=== PATIENT | female | born 1955 | race Caucasian/White ===

== ENCOUNTER → 2017-07-28 | Outpatient (CLI) | payer BC ==
[~2017-07-28] MED LIST: DICL-201 PO; OMEP20TA14 PO; VENL75CA PO
--- NOTE | 2017-07-28 18:48 | DIAGNOSTIC IMAGING REPORT ---
CHEST 2 VIEWS ROUTINE CLINICAL HISTORY: R05 Productive [id number] Rhonchi cough COMPARISON STUDY: No previous studies for comparison. FINDINGS: The bones soft tissues and hemidiaphragms are normal. The cardiomediastinal silhouette is normal. The lungs are clear. The pulmonary vasculature is normal. IMPRESSION: Negative chest. The above report was generated using voice recognition software. It may contain grammatical, syntax or spelling errors. Electronically signed by: Zen Diego M.D. 07/28/2017 6:47 PM Dictated Date/Time: 07/28/2017 6:46 PM
== END | disposition home or self-care (01) ==
LOC: C.RAD 18:23
PROVIDERS: ATTEND Internal Medicine
DX: R05 Cough (principal); R09.89 Other specified symptoms and signs involving the circulatory and respiratory systems

== ENCOUNTER 2017-12-21 10:39 | Inpatient (IN) | payer BC ==
[2017-11-10 08:44] VITALS: Ht 162.6 cm; Wt 83.5 kg
--- NOTE | 2017-11-10 09:14 | PAT Medication Instructions ---
Service Date Nov 10, 2017. Current Home Medication List Acetaminophen (Tylenol), 500 MG PO PRN Diclofenac (Voltaren), 75 MG PO BID Lisinopril (Zestril), 5 MG PO QAM Omeprazole (Prilosec), 20 MG PO QAM Venlafaxine Hcl (Effexor Xr), 1 CAP PO QAM Medication Instructions For Your Scheduled Surgery - Hold the following medications 10 days prior to surgery per your surgeon's instructions: Diclofenac (Voltaren), 75 MG PO BID - Hold the following medications the morning of surgery: Lisinopril (Zestril), 5 MG PO QAM - Take the following medications the morning of surgery with a sip of water: Acetaminophen (Tylenol), 500 MG PO PRN (if needed, can be taken up to four hours before surgery) Omeprazole (Prilosec), 20 MG PO QAM Venlafaxine Hcl (Effexor Xr), 1 CAP PO QAM - Take the following medications as scheduled the night before surgery: Acetaminophen (Tylenol), 500 MG PO PRN (if needed) If you have any questions please call us at [phone] or [phone] or [phone]
[2017-11-10 10:05] LABS: BASO % 0.5 %; BASO ABS # 0.04 K/uL (0-0.2); EOS % 2.4 %; EOS ABS # 0.18 K/uL (0-0.5); HEMATOCRIT 41.1 % (37-47); HEMOGLOBIN 13.5 g/dL (12.0-16.0); IG# 0.02 K/uL (0.00-0.02); LYMPH % 26.9 %; LYMPH ABS # 2.04 K/uL (1.2-3.4); MEAN CELL VOLUME 92.2 fL (80-100); MEAN CORPUSCULAR HEMOGLOBIN 30.3 pg (25-34); MEAN CORPUSCULAR HGB CONC 32.8 g/dl (32-36); MEAN PLATELET VOLUME 9.6 fL (7.4-10.4); MONO % 7.8 %; MONO ABS # 0.59 K/uL (0.11-0.59); NEUT % 62.1 %; NEUT ABS # 4.71 K/uL (1.4-6.5); PLATELET COUNT 307 K/uL (130-400); RED CELL DISTRIBUTION WIDTH CV 13.6 % (11.5-14.5); RED CELL DISTRIBUTION WIDTH SD 45.5 fL (36.4-46.3); WHITE BLOOD COUNT 7.58 K/uL (4.8-10.8)
[2017-11-10 10:12] LABS: PTT PATIENT 26.2 SECONDS (21.0-31.0)
[2017-11-10 10:39] LABS: CALCIUM 9.1 mg/dl (8.5-10.1); CREATININE 0.71 mg/dl (0.60-1.20); POTASSIUM 3.8 mmol/L (3.5-5.1)
--- NOTE | 2017-12-18 18:39 | HISTORY & PHYSICAL EXAMINATION ---
DATE OF ADMISSION: 12/21/2017 CHIEF COMPLAINT: Bilateral knee pain and discomfort, right side greater than left. 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 She has a long history of bilateral knee pain and discomfort, which has gradually gotten worse over the past 3-4 years[address] had seen Dr. Busby at [facility] and has been treated with injections. Shots helped initially but became less successful over time. She tried various other studies but did not qualify for any. She has tried anti-inflammatories without much relief. She has a limited walking tolerance. The right knee bothers her more than left. She would like to have her right knee fixed. PAST MEDICAL HISTORY: 1. Hypertension. 2. Mild anxiety. 3. Osteoarthritis. 4. Gastroesophageal reflux disease. PAST SURGICAL HISTORY: Includes 1. Facial reconstruction for dog bite injury. 2. Breast reduction. ALLERGIES: 1. SULFA. 2. NICKEL ALLERGY. MEDICATIONS: Current medications include: 1. Lisinopril 5 mg a day. 2. Effexor 10 mg a day. 3. Diclofenac twice a day. 4. Omeprazole for heartburn. SOCIAL HISTORY: A 62-year-old female. She is . She is a retired teacher. From the [facility]. FAMILY HISTORY: Significant for diabetes and heart disease. REVIEW OF SYSTEMS: Negative for diabetes, neurologic problem, vascular problem or resource. She does report a possible nickel allergy. No history of DVT or PE. PHYSICAL EXAMINATION: GENERAL: Examination reveals a healthy and pleasant 62-year-old female. HEENT: Benign. NECK: Supple. No lymphadenopathy. LUNGS: Clear to auscultation. CARDIOVASCULAR: Heart has regular rate and rhythm. GASTROINTESTINAL: Abdomen is soft, nontender, nondistended. EXTREMITIES: Grossly neurovascularly intact except as follows: Examination of the right knee reveals the patient walks with a varus alignment to her knee with a slight varus thrust. She has bony hypertrophy medially. Small knee effusion. Range of motion is 5 to 10 degrees. She will have full extension to 115 degrees of flexion. No instability. No pain with motion. IMAGING: X-rays of both knees were reviewed, show advanced bilateral knee DJD. She has a complete loss of her joint space and little bit tibial femoral subluxation. The right side is probably just a little bit worse than the left. She has osteophytes off the medial femoral condyle and the medial tibial plateau. ASSESSMENT: A 62-year-old female with advanced bilateral knee degenerative joint disease unresponsive to conservative treatment. The right knee is more symptomatic than the left, and she would like to have her right knee replaced. She does have an apparent nickel allergy, so will use a Rodney and Nephew total knee system with a zirconium femur and a titanium tibia. PLAN: The risks and benefits of right total knee replacement were explained to the patient which include but not limited to DVT, PE, , infection, neurological injury, vascular injury, bleeding problem, pain, limited range of motion, stiffness, failure to relieve her symptoms, etc. The patient understands and desires to proceed. Informed consent was obtained.
[~2017-12-21] VITALS: Ht 162.6 cm; Wt 83.5 kg
[2017-12-21] VITALS (7 sets, daily range): BP systolic 97–146; BP diastolic 61–98; PULSE 71–83; TEMP 36.6–37.2; O2SAT 92–99
[~2017-12-21 10:39] MED LIST changes: +ACET-1256 PO; +ACETAMINOPHEN 500 MG TAB PO SCH; +BUPIVACAINE 0.5 % 5 MG/1 ML PF 10ML VIAL ONE; +BUPIVACAINE LIPOSOME 266 MG, BUPIVACAINE/EPINEPHRINE INJ 50 ML, SODIUM CHLORIDE 0.9% PF... INFIL SCH; +CEFAZOLIN 2000MG IV PUSH 15 ML IV SCH; +FAMOTIDINE 20 MG TAB PO SCH; +GABAPENTIN 600 MG PO SCH; +LACTATED RINGER'S 1000ML 1,000 ML IV SCH; +LACTATED RINGER'S 1000ML IV SCH; +LISI-729 PO; +METOCLOPRAMIDE HCL 10 MG TAB PO SCH; -OMEP20TA14 PO; +PRLSR20 PO; +ROPIVACAINE 0.5% 5 MG/ML 30 ML VIAL ONE; +SCOPOLAMINE 1.5 MG TDSY TD SCH; +TRANEXAMIC ACID INJ 1,000 MG x 1 Bag Intra-Op IV SCH; +VENL150C PO; -VENL75CA PO
--- NOTE | 2017-12-21 11:05 | History & Physical Bridge Note ---
H&P Re-Evaluation Bridge Note: I have examined the patient, reviewed the History & Physical and in the interval since the performance of the History & Physical I have noted the following changes of clinical significance: No changes noted
[2017-12-21] MEDS ORDERED: MIDAZOLAM HCL 1 MG/ML 2ML VIAL ONE (12:38)
[2017-12-21] MEDS ORDERED: LIDOCAINE HCL 2% 2 ML VIAL (20MG/ML) ONE (12:38)
[2017-12-21] MEDS ORDERED: EpHEDrine SULFATE 50MG/5ML SYR ONE (12:38)
[2017-12-21] MEDS ORDERED: PHENYLEPHRINE 100MCG/ML 5ML SYR ONE (12:38)
[2017-12-21] MEDS ORDERED: FENTANYL CITRATE INJ 50 MCG/1 ML 2 ML VIAL ONE (12:38)
[2017-12-21] MEDS ORDERED: PROPOFOL IV EMULSION 10 MG/ML 20 ML VIAL IV ONE ×2 (12:38→14:38)
[2017-12-21] MEDS ORDERED: BUPIVACAINE 0.25% 30 ML VIAL ONE (13:02)
[2017-12-21] MEDS ORDERED: BACITRACIN 50000 UNIT VIAL ONE (13:02)
[2017-12-21] MEDS ORDERED: SODIUM CHLORIDE 0.9% PF 50 ML VIAL ONE (13:02)
[2017-12-21] MEDS ORDERED: BUPIVACAINE LIPOSOME 1/3% 266 MG/20 ML VIAL INFIL ONE (13:02)
[2017-12-21] MEDS ORDERED: EpINEphrine INJ 1MG/ML AMP 1 MG/ML AMP ONE (13:02)
[2017-12-21] MEDS ORDERED: EpHEDrine SULFATE INJ 50 MG/ML AMP IV PRN (13:45)
[2017-12-21] MEDS ORDERED: FLUMAZENIL 0.1 MG/1 ML 10 ML VIAL IV PRN (13:45)
[2017-12-21] MEDS ORDERED: FENTANYL CITRATE INJ 50 MCG/1 ML 2 ML VIAL IV PRN (13:45)
[2017-12-21] MEDS ORDERED: ONDANSETRON INJ 2 MG/ML 2 ML VIAL IV PRN ×2 (13:45→15:00)
[2017-12-21] MEDS ORDERED: PHENYLEPHRINE 100MCG/ML 5ML SYR IV PRN (13:45)
[2017-12-21] MEDS ORDERED: MEPERIDINE HCL 25 MG/ML CARP IV PRN (13:45)
[2017-12-21] MEDS ORDERED: LABETALOL HCL IV 5 MG/ML 20ML IV PRN (13:45)
[2017-12-21] MEDS ORDERED: NALOXONE HCL 0.4 MG/1 ML VIAL/CARP IV PRN (13:45)
[2017-12-21] MEDS ORDERED: ATROPINE SULFATE 0.1 MG/ML 5ML SYR IV PRN (13:45)
--- NOTE | 2017-12-21 14:58 | [facility] Post Operative Brief Note ---
Immediate Operative Summary Operative Date Dec 21, 2017. Pre-Operative Diagnosis Right Knee Advanced Degenerative Joint Disease Post-Operative Diagnosis Right Knee Advanced Degenerative Joint Disease Procedure(s) Performed Right Total Knee Arthroplasty Surgeon Dr. Medellin Human Resources Coordinator Surgeon(s) TRISHA Suarez Estimated Blood Loss 50 ml Findings Consistent with Post-Op Diagnosis Fluids (cc crystalloids) 2000 cc Specimens A. Right Knee Bone and Tissue Drains None Anesthesia Type MAC Spinal Regional Complication(s) none Disposition Accompanied Pt To Recover: no Disposition: Recovery Room / PACU
[2017-12-21] MEDS ORDERED: DiphenhydrAMINE HCL 50 MG/ML VIAL IV PRN (15:00)
[2017-12-21] MEDS ORDERED: BISACODYL 10 MG SUPP PR PRN (15:00)
[2017-12-21] MEDS ORDERED: ALUMINUM/MAGNESIUM/SIMETH (MAALOX MAX) 30 ML UDC PO PRN (15:00)
[2017-12-21] MEDS ORDERED: ZOLPIDEM TARTRATE 5 MG TAB PO PRN (15:00)
[2017-12-21] MEDS ORDERED: CEFAZOLIN IV 2,000 MG in DEXTROSE 5% 50ML 50 ML IV SCH (15:00)
[2017-12-21] MEDS ORDERED: MAGNESIUM HYDROXIDE SUSP 30 ML UDC PO PRN (15:00)
[2017-12-21] MEDS ORDERED: METOCLOPRAMIDE HCL INJ 5 MG/ML 2 ML VIAL IV PRN (15:00)
--- NOTE | 2017-12-21 15:35 | DIAGNOSTIC IMAGING REPORT ---
R KNEE 2 VIEWS ROUTINE CLINICAL HISTORY: Degenerative arthritis. Postop study. COMPARISON: Outside radiograph performed in November 2017 DISCUSSION: There are postsurgical changes of a total knee arthroplasty and patellar resurfacing. Overlying skin neo are visualized. There is air within the soft tissues consistent with recent surgery. The femoral and tibial components appear well seated. IMPRESSION: Postsurgical changes of a total right knee arthroplasty Electronically signed by: Robert Benites M.D. 12/21/2017 3:34 PM Dictated Date/Time: 12/21/2017 3:33 PM
--- NOTE | 2017-12-21 15:40 | Anesthesiology Progress Note ---
Anesthesia Post Op Note Date & Time Dec 21, 2017 at 15:40 Vital Signs Pain Intensity: 0 Vital Signs Past 12 Hours Date Time Temp Pulse Resp B/P (MAP) Pulse Ox O2 Delivery O2 Flow Rate FiO2 12/21/17 15:35 74 16 97/63 96 Nasal Cannula 2 Oxymask 12/21/17 15:25 74 16 101/63 96 Oxymask 10 12/21/17 15:15 82 18 100/60 97 Oxymask 10 12/21/17 15:04 36.7 77 18 98/53 96 Oxymask 10 12/21/17 11:24 36.8 80 20 146/98 Notes Mental Status: alert / awake / arousable, participated in evaluation Pt Amnestic to Procedure: Yes Nausea / Vomiting: adequately controlled Pain: adequately controlled Airway Patency, RR, SpO2: stable & adequate BP & HR: stable & adequate Hydration State: stable & adequate Neuraxial Anesthesia: was administered, sensory block is resolving Anesthetic Complications: no major complications apparent
[2017-12-21] MEDS: CHECK SCOPOLAMINE PATCH PLACEMENT SCH ×2 (16:00→23:18)
[2017-12-21] MEDS: TRAMADOL HCL 50 MG TAB PO PRN (17:46)
[2017-12-21] MEDS: FERROUS GLUCONATE 324 MG TAB PO SCH (18:26)
[2017-12-21] MEDS: KETOROLAC TROMETHAMINE 30 MG/ML VIAL IV. SCH ×2 (18:27→23:18)
--- NOTE | 2017-12-21 19:16 | PROGRESS NOTE ---
DATE: 12/21/2017 SUBJECTIVE: 62-year-old female postop from a right knee replacement. She is doing well. Pretty painful earlier but got some pain medicine, doing much better. No chest pain or shortness of breath. Not feeling dizzy or lightheaded. OBJECTIVE: VITAL SIGNS: Temperature 36.6. Vital signs stable. PHYSICAL EXAMINATION: GENERAL: Reveals a healthy, pleasant middle-aged female. She is sitting up in bed, looks pretty comfortable. She is talking to her . LUNGS: Clear to auscultation. HEART: Regular rate and rhythm. ABDOMEN: Soft, nontender, nondistended. EXTREMITIES: Grossly neurovascularly intact except as follows: Examination of the right leg reveals the dressing to be clean, dry and intact. She can dorsiflex and plantarflex her foot appropriately. She is neurologically intact. She has brisk refill. ASSESSMENT: 62-year-old female postop from a right knee replacement, doing well. Pain is controlled. She is neurologically intact. PLAN: 1. DVT prophylaxis including thigh-high TEDs, SCDs, and aspirin twice a day. 2. PT/OT. Weight bear as tolerated. Right total knee protocol. 3. Pain control, doing pretty well with current pain regimen. 4. IV antibiotics x24 hours. 5. Disposition: Plan to discharge to home likely with some home health once adequately recovered.
[2017-12-21] MEDS ORDERED: TRANEXAMIC ACID INJ 1,000 MG in SODIUM CHLORIDE 0.9% 100ML 100 ML IV SCH (21:00)
[2017-12-21] MEDS: HYDROmorphone INJ 0.5 MG/0.5 ML SYR IV PRN (21:04)
[2017-12-21] MEDS: DOCUSATE SODIUM 100 MG CAP PO SCH (21:10)
[2017-12-21] MEDS: ASPIRIN 81 MG ECTAB PO SCH (21:10)
[2017-12-21] MEDS: SENNA 8.6 MG TAB PO SCH (21:10)
[2017-12-21] MEDS: D5W AND 1/2NSS + 20MEQ KCL 1,000 ML IV SCH (21:11)
[2017-12-21] MEDS: TAPENTADOL ER 50 MG TABCR PO SCH (21:24)
[2017-12-21] MEDS: ACETAMINOPHEN 500 MG TAB PO SCH (21:54)
[2017-12-21] MEDS: CEFAZOLIN IV 2,000 MG in SYRINGE 0 ML IV SCH (21:54)
--- NOTE | 2017-12-21 22:07 | OPERATIVE REPORT ---
DATE OF OPERATION: 12/21/2017 SURGEON: Varun Medellin MD. CIVIL ENGINEERING DESIGNER: TRISHA Ladd PREOPERATIVE DIAGNOSIS: Right knee degenerative joint disease. POSTOPERATIVE DIAGNOSIS: Right knee degenerative joint disease. PROCEDURE PERFORMED: Right cemented posterior stabilized total knee arthroplasty. COMPLICATIONS: None. ESTIMATED BLOOD LOSS: 50 mL FLUID REPLACEMENT: 2000 mL crystalloid fluid replacement. TOURNIQUET TIME: 57 minutes at 300 mmHg. ANESTHESIA: Spinal with adductor canal block. DRAINS: None. SPECIMENS: Right knee sent for pathology. HISTORY OF PRESENT ILLNESS: The patient is a 62-year-old fairly active female who had a long history of bilateral knee pain and discomfort. She has been through extensive conservative measures over the past several years, which became less successful over time. She is getting more debilitated by both knees. She would like to proceed with right knee replacement. THE PATIENT DOES HAVE AN APPARENT NICKEL ALLERGY, so we used Rodney & Nephew zirconium total knee arthroplasty. OPERATIVE FINDINGS: Operative findings revealed advanced right knee DJD. She had extensive grade 4 changes in the medial compartment as well as the patellofemoral compartment. She had a fixed varus deformity to her knee with a slight flexion contracture. Moderate-sized joint effusion. OPERATIVE IMPLANTS: Operative implants consisted of: 1. Rodney & Nephew size 4 right posterior stabilized femoral component. 2. Rodney and Nephew size 3 tibial tray. 3. A 10 mm posterior stabilized polyethylene insert. 4. 32 x 9 all poly patella. OPERATIVE PROCEDURE: The patient taken to the operating room, identified, and placed on the operating table supine position. All contact areas were appropriately padded. IV antibiotics were provided by anesthesia team. A spinal anesthetic and adductor canal block had been provided in the holding area. Jackson catheter was placed in sterile fashion. Right thigh tourniquet was then placed. The right lower extremity was then prepped and draped in usual sterile fashion. The right leg was elevated and exsanguinated with Esmarch and tourniquet placed at 300 mmHg. An anterior approach of the right knee was then performed through a longitudinal incision centered over the patella. Sharp discussion carried through subcutaneous tissues down to the level of the extensor mechanism. Medial parapatellar arthrotomy incision was made. Some subperiosteal dissection was carried out medially. The fat pad resected from beneath the patellar tendon. Lateral patellofemoral ligament was released. Patella was everted and knee was flexed. The osteophytes were taken off the distal femur. The ACL and PCL were then released from the distal femur. The tibia subluxated anteriorly. External tibial alignment jig was then placed in the anterior face of the tibia and adjusted 8 mm medially, which was the maximum setting. Proximal tibial cut was made to remove about a millimeter or 2 of bone from most deficient aspect of the medial tibial plateau. Some osteophytes were taken off medial and posteromedially. The tibia was then sized to a size 3. Attention was then drawn to the femur. This distal femur was entered with a sharp drill bit. Intramedullary canal was suctioned. A right 5 degree valgus cutting guide was placed. Distal femoral cutting block was pinned in place. Distal femoral cutting block was adjusted and taken additional 2 mm of bone off distal femur. The distal femoral cut was made. Femur was then sized to a size 4. We did downsize this at least half a size. The AP cutting block was pinned parallel to the epicondylar axis, which was 3 degrees of external rotation. The anterior cord, anterior chamfer, posterior cut, posterior chamfer and anterior chamfer cuts were then made. The knee was flexed. The remnants of the medial and lateral menisci were excised. The osteophytes were taken off the posterior aspect of the femur. A trial size 4 femoral component was placed. The notch cutting device was placed and the notch was created. The trochlear component was placed. The tibia subluxated anteriorly. The drill and stem punch were used to create defect in proximal tibia for the tibial tray. I then trialed the knee and the 10 mm insert fit most appropriately. Attention was then drawn to patella. The patella was cleaned of all soft tissues. Patella thickness measured 22 mm in thickness, was cut down to 14. It was sized to a size 32 patella. Lug holes were drilled for the 32 patella. Lateral osteophyte was removed. Patella button was placed. Knee was taken through range of motion and the patella tracked nicely with no thumbs test. Attention was then drawn toward placement of permanent components. All trial components were removed. Bone plug was placed in the distal femur to limit blood loss. A double batch of Palacos G cement was mixed. A right size for a Rodney and Nephew zirconium femoral component was placed followed by a size 3 tibial tray, a 10 mm posterior stabilized polyethylene insert, 32 x 9 all poly patella. Knee was brought out into full extension until cement hardened. A final cement check was then performed. Pericapsular tissues were injected with a total of 100 mL of combination of 20 mL of Exparel, 30 mL of normal saline, 50 mL of 0.25% Marcaine with epinephrine. The patient did receive 1 g of tranexamic acid. The tourniquet was then let down for a tourniquet time of 57 minutes. Hemostasis was assured with use of electrocautery. The extensor mechanism was then closed with a combination of #1 PDS suture and #1 Vicryl suture in a [id number] fashion. Extensor mechanism was checked and found to be intact. The subcutaneous tissue then closed with #2 Dexon suture in a buried interrupted fashion. Skin was closed skin neo. Leg was then cleaned and dried and a sterile dressing of Xeroform, 4 x 4's, sterile cast padding, and Juanpablo bandage were applied. The patient then transferred to the recovery room in stable condition. The patient tolerated the procedure with no complications. All needle and sponge counts were correct at the end of the operation. I attest to the content of the Intraoperative Record and any orders documented therein. Any exception s are noted below.
[2017-12-22 03:10] VITALS: BP 113/73; PULSE 77; TEMP 37.3; O2SAT 94
[2017-12-22] MEDS: KETOROLAC TROMETHAMINE 30 MG/ML VIAL IV. SCH ×4 (06:22→23:34)
[2017-12-22] MEDS: CEFAZOLIN IV 2,000 MG in SYRINGE 0 ML IV SCH (06:22)
[2017-12-22] MEDS: D5W AND 1/2NSS + 20MEQ KCL 1,000 ML IV SCH ×2 (06:22→14:00)
[2017-12-22] MEDS: ACETAMINOPHEN 500 MG TAB PO SCH ×3 (06:22→21:58)
[2017-12-22 07:03] LABS: HEMOGLOBIN 11.5 g/dL (12.0-16.0); MEAN CELL VOLUME 93.3 fL (80-100); MEAN CORPUSCULAR HEMOGLOBIN 29.8 pg (25-34); MEAN CORPUSCULAR HGB CONC 31.9 g/dl (32-36); MEAN PLATELET VOLUME 9.5 fL (7.4-10.4); PLATELET COUNT 233 K/uL (130-400); RED CELL DISTRIBUTION WIDTH CV 13.2 % (11.5-14.5); RED CELL DISTRIBUTION WIDTH SD 44.9 fL (36.4-46.3); WHITE BLOOD COUNT 8.66 K/uL (4.8-10.8)
[2017-12-22 07:31] LABS: CALCIUM 8.3 mg/dl (8.5-10.1); CREATININE 0.84 mg/dl (0.60-1.20); POTASSIUM 3.8 mmol/L (3.5-5.1)
[2017-12-22 07:45] VITALS: BP 123/78; PULSE 83; TEMP 36.7; O2SAT 95
--- NOTE | 2017-12-22 08:21 | Anesthesiology Progress Note ---
Anesthesia Post Op Note Date & Time Dec 22, 2017 at 08:20 Vital Signs Pain Intensity: 2.0 Vital Signs Past 12 Hours Date Time Temp Pulse Resp B/P (MAP) Pulse Ox O2 Delivery O2 Flow Rate FiO2 12/22/17 07:45 36.7 83 18 123/78 (93) 95 Room Air 12/22/17 07:45 Room Air 12/22/17 03:10 37.3 77 16 113/73 (86) 94 Room Air 12/21/17 23:23 Room Air 12/21/17 22:55 37.2 83 16 135/87 (103) 92 Room Air Notes Mental Status: alert / awake / arousable, participated in evaluation Pt Amnestic to Procedure: Yes Nausea / Vomiting: adequately controlled Pain: adequately controlled Airway Patency, RR, SpO2: stable & adequate BP & HR: stable & adequate Hydration State: stable & adequate Neuraxial Anesthesia: was administered, sensory block resolved Anesthetic Complications: no major complications apparent
[2017-12-22] MEDS: CHECK SCOPOLAMINE PATCH PLACEMENT SCH ×3 (08:31→23:34)
[2017-12-22] MEDS: TAPENTADOL ER 50 MG TABCR PO SCH ×2 (08:32→21:58)
[2017-12-22] MEDS: ASPIRIN 81 MG ECTAB PO SCH ×2 (08:34→21:58)
[2017-12-22] MEDS: PANTOprazole SOD 40 MG TAB PO SCH (08:34)
[2017-12-22] MEDS: VENLAFAXINE HCL XR 150 MG CAPXR PO SCH (08:34)
[2017-12-22] MEDS: DOCUSATE SODIUM 100 MG CAP PO SCH ×2 (08:35→21:57)
[2017-12-22] MEDS: LISINOPRIL 10 MG TAB PO SCH (08:35)
[2017-12-22] MEDS: MULTIVITAMIN TAB PO SCH (08:35)
[2017-12-22] MEDS: FERROUS GLUCONATE 324 MG TAB PO SCH ×3 (08:36→17:45)
[2017-12-22] MEDS: TRAMADOL HCL 50 MG TAB PO PRN ×3 (08:37→23:34)
[2017-12-22] MEDS ORDERED: NON-FORMULARY MEDICATION (Omeprazole (Prilosec) 20 MG) PO SCH (09:00)
[2017-12-22] MEDS: HYDROmorphone INJ 0.5 MG/0.5 ML SYR IV PRN ×4 (09:56→19:08)
[2017-12-22 12:23] VITALS: BP 128/87; PULSE 87; TEMP 36.9; O2SAT 93
[2017-12-22 15:40] VITALS: BP 129/88; PULSE 100; TEMP 36.6; O2SAT 93
--- NOTE | 2017-12-22 15:56 | PROGRESS NOTE ---
DATE: 12/22/2017 SUBJECTIVE: A 62-year-old female postop day 1 from a right knee replacement. She is doing pretty well. Pretty painful day today. No chest pain or shortness of breath. Not feeling dizzy or lightheaded. OBJECTIVE: VITAL SIGNS: Temperature 36.9. Vital signs stable. PHYSICAL EXAMINATION: GENERAL: Shows a pleasant middle-aged female. She is sitting in bed, looks reasonably comfortable. EXTREMITIES: Examination of the right leg reveals the dressing to be clean, dry and intact. The leg is well aligned. She can dorsiflex and plantarflex her foot appropriately. She is neurologically intact. LABORATORY DATA: Hemoglobin 11.5, hematocrit 36.0. Electrolytes are stable. ASSESSMENT: A 62-year-old female postop day 1 from right knee replacement, doing reasonably well. Pretty painful but not out of the ordinary or unexpected. PLAN: 1. DVT prophylaxis including thigh-high TEDs, SCDs, and aspirin twice a day. 2. PT/OT. Weight bear as tolerated. Right total knee protocol. 3. Pain control. Doing reasonable well with current pain regimen. 4. Disposition: She is planning to be discharged to home with home health once adequately recovered.
[2017-12-22] MEDS ORDERED: ASPI-320 PO (19:57)
[2017-12-22] MEDS ORDERED: ONDA4TAB65 PO (19:57)
[2017-12-22] MEDS ORDERED: ULT50X PO (19:57)
[2017-12-22] MEDS ORDERED: ACET-24 PO (19:57)
--- NOTE | 2017-12-22 19:59 | Discharge Instructions ---
Discharge Instructions Date of Service Dec 22, 2017. Admission Reason for Admission: Right Knee Degenerative Joint Disease Discharge Discharge Diagnosis / Problem: Right Knee Replacement Discharge Goals Goal(s): Decrease discomfort, Improve function, Increase independence, Improve disease control, Therapeutic intervention Activity Recommendations Activity Limitations: per Instructions/Follow-up section Weightbearing Status: Right weightbearing . Instructions / Follow-Up Instructions / Follow-Up ACTIVITY RECOMMENDATIONS: Physical Therapy: * You will go to physical therapy three times each week for four to six weeks after your surgery in order to regain your knee range of motion and to retrain your knee to work properly. * It is just as important to make sure you are getting your knee perfectly straight as it is to regain your knee bend. * Taking a pain pill an hour before therapy can help you have a more productive and comfortable therapy session. Home Exercise: * You were shown a series of exercises (heel props, heel slides, etc.) in the hospital. Do these exercises three to four times each day including the exercises you were shown in physical therapy. Walking: * Get up and walk several times each day. For the first four weeks, try not to stand or walk for more than one hour at a time. If you do stand or walk for more than one hour, you will not hurt anything, but your knee and leg will likely swell. * As you feel comfortable, you may change from the walker or crutches to a cane and then to independent walking. MEDICATIONS: New Medicine: * You will likely be taking one or more of these medications: 1. Tramadol - A quick and shorter-acting pain medication. Take one to two tablets every four to six hours to lessen your pain. 2. Aspirin - Thins your blood to lessen the chance of forming a blood clot. * The most common side effects of pain medicine and iron are nausea and constipation. If nausea or constipation is too much of a problem or if you have any questions about your new medicines or doses, call [facility] at . We will try to help you manage these issues. VERY IMPORTANT TO READ AND REVIEW" Pain: * The immediate post-operative period after knee replacement surgery is often quite painful. * You are given a prescription for pain medicine. You should take it, as directed, when you need it, especially before physical therapy and before going to bed. Pain that interferes with sleep is very common and can last several months. * You will likely need pain medicine for the first four to six weeks. It will not stop all of the pain. The pain will lessen and as you feel better, you may change to milder pain medicine such as Tylenol. * The most common side effects of pain medicine are nausea and constipation, so don't take more than you need. SPECIAL CARE INSTRUCTIONS: TEDs/Elastic Stockings: * The white elastic stockings help limit swelling and prevent blood clots from forming in your legs. The more you wear them, the more they work. * Wear them for six weeks after knee replacement surgery and four weeks after partial knee replacement. Prevention of Infection: * Take antibiotics one hour before any dental cleaning, dental work, urological procedure, gastrointestinal procedure or any invasive surgery in order to prevent your new joint from getting infected. * You may get the antibiotics from the doctor performing the procedure or you may call our office at before and we will call in a prescription to the pharmacy of your choice. Things to Watch For: * Drainage from the incision site that occurs more than one week after your surgery. * Severely increased knee/leg pain or swelling. * Increased redness at the incision site. * Fever above 102 degrees Fahrenheit. * Unusual chest pain or shortness of breath. * Unusual pain or burning with urination. Call [facility] at with any of the above problems or if you have any questions about your medicines or recovery. FOLLOW UP VISIT: Make an appointment to see your doctor for approximately two weeks after surgery for a progress check and staple removal by calling the office at . Current Hospital Diet Patient's current hospital diet: Regular Diet Discharge Diet Recommended Diet: Regular Diet Procedures Procedures Performed: Right Total Knee Arthroplasty Pending Studies Studies pending at discharge: no Medical Emergencies . Who to Call and When: Medical Emergencies: If at any time you feel your situation is an emergency, please call [phone] immediately. . Non-Emergent Contact Non-Emergency issues call your: Surgeon . "Provider Documentation" section prepared by Varun Medellin. .
[2017-12-22] MEDS: SENNA 8.6 MG TAB PO SCH (21:58)
[2017-12-22 23:07] VITALS: BP 109/71; PULSE 87; TEMP 37.1; O2SAT 91
[2017-12-23] MEDS: ACETAMINOPHEN 500 MG TAB PO SCH (05:46)
[2017-12-23] MEDS: KETOROLAC TROMETHAMINE 30 MG/ML VIAL IV. SCH ×3 (05:46→11:22)
[2017-12-23 06:16] VITALS: BP 116/78; PULSE 88; TEMP 37.1; O2SAT 95
--- NOTE | 2017-12-23 07:29 | PROGRESS NOTE ---
DATE: 12/23/2017 SUBJECTIVE: A 62-year-old female postop day 2 from a right knee replacement. She is doing pretty well. Pain is a little bit better today. No chest pain or shortness of breath. Not feeling dizzy or lightheaded. PHYSICAL EXAMINATION: VITAL SIGNS: Temperature 37.1. Vital signs stable. GENERAL: Reveals a pleasant, middle-aged female. She is sitting up in bed and looks pretty comfortable this morning. EXTREMITIES: Examination of the right leg reveals the leg to be well aligned. Dressing is clean, dry and intact. Calf is soft and supple. She can dorsiflex and plantarflex her foot appropriately. ASSESSMENT: A 62-year-old female postop day 2 from a right knee replacement, doing reasonably well. PLAN: 1. DVT prophylaxis including thigh-high TEDs, SCDs, and aspirin twice a day. 2. PT/OT. Weight bear as tolerated. Right total knee protocol. 3. Pain control, doing pretty well with current pain regimen. 4. Disposition: Plan to discharge to home with some home health later today.
[2017-12-23] MEDS: FERROUS GLUCONATE 324 MG TAB PO SCH (07:41)
[2017-12-23] MEDS: CHECK SCOPOLAMINE PATCH PLACEMENT SCH (07:41)
[2017-12-23] MEDS: MULTIVITAMIN TAB PO SCH (07:42)
[2017-12-23] MEDS: VENLAFAXINE HCL XR 150 MG CAPXR PO SCH (07:42)
[2017-12-23] MEDS: TAPENTADOL ER 50 MG TABCR PO SCH (07:42)
[2017-12-23] MEDS: LISINOPRIL 10 MG TAB PO SCH (07:43)
[2017-12-23] MEDS: PANTOprazole SOD 40 MG TAB PO SCH (07:43)
[2017-12-23] MEDS: TRAMADOL HCL 50 MG TAB PO PRN ×2 (07:44→11:46)
[2017-12-23 07:52] VITALS: BP 120/80; PULSE 96; TEMP 36.8; O2SAT 97
[2017-12-23] MEDS: DOCUSATE SODIUM 100 MG CAP PO SCH (08:26)
[2017-12-23] MEDS: ASPIRIN 81 MG ECTAB PO SCH (08:26)
[2017-12-23 10:42] VITALS: BP 120/80; PULSE 96; TEMP 36.8; O2SAT 97
== END 2017-12-23 11:59 | disposition home health service (06) | DRG 470 ==
LOC: C.ACU 10:39 → C.3E 11:15 → ENRESERV 15:34
PROVIDERS: ADMIT Orthopaedic Surgery Sports Medicine; ATTEND Orthopaedic Surgery Sports Medicine
PROC: 0SRC06A Replacement of Right Knee Joint with Oxidized Zirconium on Polyethylene Synthetic Substitute, Uncemented, Open Approach (ICD-10-PCS; principal; 2017-12-21 13:00)
DX: M17.11 Unilateral primary osteoarthritis, right knee (principal); I10 Essential (primary) hypertension; K21.9 Gastro-esophageal reflux disease without esophagitis; F41.9 Anxiety disorder, unspecified; Z79.899 Other long term (current) drug therapy; Z88.2 Allergy status to sulfonamides; Z91.048 Other nonmedicinal substance allergy status

== ENCOUNTER → 2018-04-12 | Outpatient (CLI) | payer BC ==
[~2018-04-12] MED LIST changes: +ACET-24 PO; -ACETAMINOPHEN 500 MG TAB PO SCH; +ASPI-320 PO; -BUPIVACAINE 0.5 % 5 MG/1 ML PF 10ML VIAL ONE; -BUPIVACAINE LIPOSOME 266 MG, BUPIVACAINE/EPINEPHRINE INJ 50 ML, SODIUM CHLORIDE 0.9% PF... INFIL SCH; -CEFAZOLIN 2000MG IV PUSH 15 ML IV SCH; -FAMOTIDINE 20 MG TAB PO SCH; -GABAPENTIN 600 MG PO SCH; -LACTATED RINGER'S 1000ML 1,000 ML IV SCH; -LACTATED RINGER'S 1000ML IV SCH; -METOCLOPRAMIDE HCL 10 MG TAB PO SCH; -ROPIVACAINE 0.5% 5 MG/ML 30 ML VIAL ONE; -SCOPOLAMINE 1.5 MG TDSY TD SCH; -TRANEXAMIC ACID INJ 1,000 MG x 1 Bag Intra-Op IV SCH; +ULT50X PO; -VENL150C PO; +VENL150C2 PO
[2018-04-12 17:15] LABS: BASO % 0.2 %; BASO ABS # 0.02 K/uL (0-0.2); EOS % 1.8 %; EOS ABS # 0.19 K/uL (0-0.5); HEMATOCRIT 41.8 % (37-47); HEMOGLOBIN 12.9 g/dL (12.0-16.0); IG# 0.03 K/uL (0.00-0.02); LYMPH % 25.8 %; LYMPH ABS # 2.71 K/uL (1.2-3.4); MEAN CELL VOLUME 92.7 fL (80-100); MEAN CORPUSCULAR HEMOGLOBIN 28.6 pg (25-34); MEAN CORPUSCULAR HGB CONC 30.9 g/dl (32-36); MEAN PLATELET VOLUME 10.3 fL (7.4-10.4); MONO % 7.1 %; MONO ABS # 0.75 K/uL (0.11-0.59); NEUT % 64.8 %; PLATELET COUNT 363 K/uL (130-400); RED CELL DISTRIBUTION WIDTH CV 14.1 % (11.5-14.5); RED CELL DISTRIBUTION WIDTH SD 47.7 fL (36.4-46.3)
[2018-04-12 17:24] LABS: INR 0.9 (0.9-1.1); PTT PATIENT 26.6 SECONDS (21.0-31.0)
[2018-04-12 17:37] LABS: BLOOD UREA NITROGEN 12 mg/dl (7-18); CALCIUM 9.1 mg/dl (8.5-10.1); CARBON DIOXIDE 26 mmol/L (21-32); CREATININE 0.77 mg/dl (0.60-1.20); GLUCOSE 72 mg/dl (70-99); POTASSIUM 3.6 mmol/L (3.5-5.1); SODIUM 138 mmol/L (136-145)
== END | disposition home or self-care (01) ==
LOC: C.LABBC 13:37
PROVIDERS: ATTEND Orthopaedic Surgery Sports Medicine
DX: Z01.818 Encounter for other preprocedural examination (principal)